=== PATIENT | male | born 1970 | race Caucasian/White ===

== ENCOUNTER 2017-05-11 15:35 | Emergency (ER) | payer BC ==
[~2017-05-11] VITALS: Wt 97.5 kg
[~2017-05-11 15:35] MED LIST: FLOMAX0.4 MG PO; LISINOPRIL20 MG PO; MOTRIN800 MG PO; NAPROSYN500 MG PO; NORCO 5-325 TA1 EACH PO; ZOFRAN ODT4 MG SL
[2017-05-11 16:25] LABS: HEMOGLOBIN 15.1 g/dl (14.0-18.0); MEAN CELL VOLUME 91.3 fl (80.0-94.0); MEAN CORPUSCULAR HGB CONC 32.8 g/dl (33.0-37.0); MEAN PLATELET VOLUME 8.8 fl (9.6-12.3); PLATELET COUNT AUTOMATED 317 10*3/uL (130-400); RED BLOOD COUNT 5.04 10*6/uL (4.50-5.90); RED CELL DISTRI WIDTH 13.9 % (0-14.5); WHITE BLOOD COUNT 11.3 10*3/uL (4.8-10.8)
[2017-05-11 16:40] LABS: ALBUMIN 2.8 gm/dl (3.1-4.5); CREATININE 2.25 mg/dL (0.70-1.30); TOTAL PROTEIN 6.2 gm/dL (6.4-8.2)
[2017-05-11 16:45] LABS: PLATELET SUFFICIENCY NORMAL (NORMAL); TOTAL CELLS COUNTED 100 #CELLS
[2017-05-11] MEDS ORDERED: ZANTAC 150150 MG PO (18:35)
== END 2017-05-11 18:38 | disposition home or self-care (01) ==
LOC: ED 15:35
PROVIDERS: Physician Assistant
DX: R10.13 Epigastric pain (principal); K21.9 Gastro-esophageal reflux disease without esophagitis; F17.200 Nicotine dependence, unspecified, uncomplicated; Z79.899 Other long term (current) drug therapy

== ENCOUNTER 2017-11-30 12:31 | Emergency (ER) | payer BC ==
[~2017-11-30] VITALS: Ht 177.8 cm; Wt 99.8 kg
[~2017-11-30 12:31] MED LIST changes: +ZANTAC 150150 MG PO
[2017-11-30] MEDS ORDERED: BRILINTA90 M1 PO (12:41)
[2017-11-30 14:59] LABS: BILIRUBIN NEGATIVE (NEGATIVE); BLOOD NEGATIVE (NEGATIVE); CLARITY CLEAR (CLEAR); COLOR YELLOW (YELLOW); GLUCOSE NEGATIVE (NEGATIVE); KETONE NEGATIVE (NEGATIVE); LEUKO ESTERASE NEGATIVE (NEGATIVE); NITRITE NEGATIVE (NEGATIVE); SPECIFIC GRAVITY 1.025 (1.005-1.030); UROBILINOGEN 0.2 E.U./dl (0.2-1.0)
[2017-11-30 15:09] LABS: BACTERIA TRACE; HYALINE CAST 0-1; MUCOUS TRACE
[2017-11-30 15:11] LABS: RBC 0-2 rbc/hpf (0-2); WBC 0-2 wbc/hpf (0-5)
[2017-11-30] MEDS ORDERED: NORCO 5-325 TA1 EACH PO (15:14)
[2017-11-30] MEDS ORDERED: CYCLOBENZAPRINE5 M3 PO (15:14)
== END 2017-11-30 15:15 | disposition home or self-care (01) ==
LOC: ED 12:31
PROVIDERS: Physician Assistant
DX: M54.5 Low back pain (principal); Z79.899 Other long term (current) drug therapy

== ENCOUNTER → 2019-01-16 | Outpatient (CLI) | payer BC ==
[~2019-01-16] MED LIST changes: +BRILINTA90 M1 PO; +CYCLOBENZAPRINE5 M3 PO
[2019-01-16 19:07] LABS: BUN 23 mg/dl (7-24); CREATININE 1.12 mg/dL (0.70-1.30)
== END | disposition home or self-care (01) ==
LOC: LAB 18:14
PROVIDERS: Orthopaedic Surgery
DX: M25.511 Pain in right shoulder (principal)

== ENCOUNTER → 2024-10-01 | Outpatient (CLI) | payer BC | END | disposition home or self-care (01) | LOC: RAD 14:05 | PROVIDERS: ATTEND Physician Assistant Medical | DX: M25.822 Other specified joint disorders, left elbow (principal); M79.89 Other specified soft tissue disorders; M25.522 Pain in left elbow ==